=== PATIENT | male | born 1950 | race Caucasian/White ===

== ENCOUNTER 2017-09-18 11:50 | Day surgery (SDC) | payer OTHER, MEDICARE ==
[~2017-09-18 11:50] MED LIST: Metoclopramide 10 MG/2 ML SDV IV PRN; Sodium Chloride 0.9% 1,000 ML IV SCH; Sodium Chloride 0.9% 10 ML Syringe FLUSH PRN
[2017-09-18] MEDS ORDERED: Propofol 200 MG/20 ML SDV ONE (13:00)
[2017-09-18] MEDS ORDERED: Midazolam 1 MG/ML 5 ML SDV ONE (13:00)
[2017-09-18 16:56] VITALS: BP 115/71
--- NOTE | 2017-09-18 18:54 | OR ---
DATE OF OPERATION: 09/18/2017 PREOPERATIVE DIAGNOSIS: Screening colonoscopy. POSTOPERATIVE DIAGNOSIS: Normal colonoscopy. OPERATION: Screening colonoscopy. COMPLICATIONS: None. DRAINS: None. SPECIMENS: None. ESTIMATED BLOOD LOSS: 0. ANESTHESIA: General propofol anesthesia. INDICATION: Mr. Lewis is a 67-year-old gentleman who is here for his 10 yearly screening colonoscopy. He is currently asymptomatic. He is of average risk. The above-mentioned procedure was explained. The risks, benefits, and complications were explained, the patient understood and agreed. He is brought to the operating room. DESCRIPTION OF PROCEDURE: The patient was brought to the operating room, placed in the left lateral decubitus position on the operating room table, satisfactory general propofol anesthesia was administered. We began by performing a rectal examination which was within normal limits. I then subsequently placed my endoscope by finger introduction into the rectum and subsequently advanced to the level of the cecum. The cecum was identified by the appendiceal orifice, the ileocecal valve, and the cecal strap. Next, a careful evaluation of the mucosa was performed on withdrawal. This revealed no telangiectasias, no polyps or neoplastic growths; however, there were some scattered diverticula identified in the descending colon and [id number] sigmoid. Retroflexion was performed in the rectum which was within normal limits. The colon was then decompressed and the endoscope was withdrawn. There were no complications. The instrument count was correct. The patient tolerated the procedure well. ASHLEY /[id number]
== END 2017-09-18 14:48 | disposition home or self-care (01) ==
LOC: LB.SDS 11:50
PROVIDERS: ATTEND Surgery
DX: Z12.11 Encounter for screening for malignant neoplasm of colon (principal); K57.30 Diverticulosis of large intestine without perforation or abscess without bleeding; Z88.2 Allergy status to sulfonamides; Z88.8 Allergy status to other drugs, medicaments and biological substances
CPT/HCPCS: J2250; J2704; J7040; J7050

== ENCOUNTER 2018-06-04 18:37 | Emergency (ER) | payer MEDICARE, OTHER ==
[2018-06-04] MEDS ORDERED: Diphtheria/Tetanus Toxoids,Adult (Td) 0.5 ML SDV IM ONE (18:41)
--- NOTE | 2018-06-04 18:57 | EDM.PDOC ---
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 Pt cleaned it with peroxide and wrapped it with tape and her in the emergency room. not actively bleeding presently. Pt is not sure of his last tetanus shot. No other injuries. Onset: Today Onset Date: 06/04/18 Onset Time: 18:00 Location: Reports: Lower Extremity, Left Quality: Reports: Ache Severity: Mild Improves with: Reports: None Worsens with: Reports: None - Related Data Allergies Allergy/AdvReac Type Severity Reaction Status Date / Time simvastatin Allergy Muscle Verified 09/17/17 21:09 Aches Sulfa (Sulfonamide Allergy Swelling Verified 09/17/17 21:09 Antibiotics) Home Meds: Home Meds Ascorbate Calcium/Bioflavonoid [[place]olita-C 1,000 mg Tablet] 1 each PO DAILY [History] Loratadine [Claritin RediTabs] 10 mg PO DAILY 09/17/17 [History] Mirtazapine 7.5 mg PO DAILY 09/17/17 [History] Multivitamin [Multivitamins] 1 each PO DAILY 09/17/17 [History] Multivitamin/Iron/Folic Acid [Centrum Adults Tablet] 1 each PO DAILY 09/17/17 [ History] [place]-3/DHA/Epa/Fish Oil [Fish Oil 1,000 mg Softgel] 1,000 mg PO DAILY 09/17/17 [History] PARoxetine [Paxil] 10 mg PO DAILY 09/17/17 [History] Pravastatin [Pravachol] 10 mg PO BEDTIME 09/17/17 [History] Past Medical History HEENT History: Reports: Macular Degeneration Cardiovascular History: Reports: High Cholesterol Musculoskeletal History: Reports: Back Pain, Chronic Neurological History: Reports: Brain Injury, Concussion, Head Trauma Dermatologic History: Reports: Other (See Below) Other Dermatologic History: Bridgett ds - Infectious Disease History Infectious Disease History: Reports: Hepatitis B - Past Surgical History HEENT Surgical History: Reports: Tonsillectomy GI Surgical History: Reports: Appendectomy Neurological Surgical History: Reports: C-Spine Social & Family History - Caffeine Use Caffeine Use: Reports: Coffee ED ROS GENERAL - Review of Systems Review Of Systems: See Below Constitutional: Denies: Fever, Chills HEENT: Denies: Throat Pain Respiratory: Denies: Cough, Sputum Cardiovascular: Denies: Chest Pain, Lightheadedness GI/Abdominal: Denies: Nausea, Vomiting Skin: Reports: Wound. Denies: Bruising, Pruritis, Rash ED EXAM, GENERAL - Physical Exam Exam: See Below Exam Limited By: No Limitations General Appearance: Alert, WD/WN, No Apparent Distress Eye Exam: Bilateral Eye: EOMI, PERRL Ears: Normal External Exam, Normal Canal, Hearing Grossly Normal, Normal TMs Ear Exam: Bilateral Ear: Auricle Normal, Canal Normal, TM normal Nose: Normal Inspection, Normal Mucosa, No Blood Throat/Mouth: Normal Inspection, Normal Lips, Normal Teeth, Normal Gums, Normal Oropharynx, Normal Voice, No Airway Compromise Head: Atraumatic, Normocephalic Neck: Normal Inspection, Supple, Non-Tender, Full Range of Motion Respiratory/Chest: No Respiratory Distress, Lungs Clear, Normal Breath Sounds, No Accessory Muscle Use, Chest Non-Tender Cardiovascular: Normal Peripheral Pulses, Regular Rate, Rhythm, No Edema, No Gallop, No JVD, No Murmur, No Rub Neurological: Alert, Oriented Skin Exam: Warm, Intact, Other (left thumb: there is a 8mm superficial skin flap over the tip of the thumb, which is well approximated to the skin. There is no active bleeding or gapping of the wound.Non tender to touch. normal neurovascular exam.) Course - Vital Signs Text/Narrative:: The left thumb wound is hemostatic and it is very superficial. We did soak the wound in betadine for 5 mintues and cleaned the wound. Dermabond applied along the cut amrgin. Simple dressing done. Pt advised to keep the wound dry for 48 hrs. Simple daily dressings after that until the scab separates. Did receive tetanus today. followup in clinic if he develop swelling, redness or severe pain in the thumb or hand. - Orders/Labs/Meds Orders: Active Orders 24 hr Category Date Time Status Vaccines to be Administered [RC] PER UNIT ROUTINE Care 06/04/18 18:42 Ordered Diphtheria/Tetanus Tox,Adult [Tenivac] Med 06/04/18 18:41 Once 0.5 ml IM .ONCE ONE Departure - Departure Time of Disposition: 19:00 Disposition: Home, Self-Care 01 Clinical Impression: Laceration of thumb without complication - Discharge Information *PRESCRIPTION DRUG MONITORING PROGRAM REVIEWED*: Not Applicable *COPY OF PRESCRIPTION DRUG MONITORING REPORT IN PATIENT JASON: Not Applicable Additional Instructions: Pt advised to keep the wound dry for 48 hrs. Simple daily dressings after that until the scab separates. Did receive tetanus today. followup in clinic if he develop swelling, redness or severe pain in the thumb or hand. - Problem List & Annotations (1) Laceration of thumb without complication SNOMED Code(s): 711204971 Code(s): S61.019A - LACERATION W/O FOREIGN BODY OF THMB W/O DAMAGE TO NAIL, INIT Status: Acute - Problem List Review Problem List Initiated/Reviewed/Updated: Yes - My Orders Last 24 Hours: My Active Orders 06/04/18 18:41 Diphtheria/Tetanus Tox,Adult [Tenivac] 0.5 ml IM .ONCE ONE 06/04/18 18:42 Vaccines to be Administered [RC] PER UNIT ROUTINE - Assessment/Plan Last 24 Hours: My Active Orders 06/04/18 18:41 Diphtheria/Tetanus Tox,Adult [Tenivac] 0.5 ml IM .ONCE ONE 06/04/18 18:42 Vaccines to be Administered [RC] PER UNIT ROUTINE Assessment:: Superficial left thumb laceration Plan: Pt advised to keep the wound dry for 48 hrs. Simple daily dressings after that until the scab separates. Did receive tetanus today. followup in clinic if he develop swelling, redness or severe pain in the thumb or hand.
[2018-06-04 19:24] VITALS: BP 131/78
== END 2018-06-04 19:04 | disposition home or self-care (01) ==
LOC: LB.ED 18:37
DX: S61.012A Laceration without foreign body of left thumb without damage to nail, initial encounter (principal); E78.00 Pure hypercholesterolemia, unspecified; Z79.899 Other long term (current) drug therapy; Z23 Encounter for immunization; Z88.8 Allergy status to other drugs, medicaments and biological substances
CPT/HCPCS: 12001; 90471; 90714; 99283-25

== ENCOUNTER 2020-04-23 10:48 | Observation (INO) | payer MEDICARE ==
--- NOTE | 2020-04-23 12:03 | EDM.PDOC ---
ED HPI GENERAL MEDICAL PROBLEM - General Chief Complaint: General Stated Complaint: NUMBNESS TO LEFT LEG DIZZINESS Time Seen by Provider: 04/23/20 11:40 Source of Information: Reports: Patient, RN History Limitations: Reports: No Limitations - History of Present Illness INITIAL COMMENTS - FREE TEXT/NARRATIVE: Patient was working outside and felt his left leg go numb, he states he fell, denies head or any trauma. On the way to the ED he had "a little bit " of left wrist numbness that resolved quickly. He had left wrist numbness Denies any pain at this time. NIH stroke negative. CMS +. Patient has a history of bradycardia with an average HR of 44 per patiient. He has had [place] cardiololgy work up. Onset: Today Onset Date: 04/23/20 Onset Time: 09:30 Location: Reports: Lower Extremity, Left Severity: Moderate Improves with: Reports: None Worsens with: Reports: None Associated Symptoms: Reports: No Other Symptoms - Related Data Allergies Allergy/AdvReac Type Severity Reaction Status Date / Time simvastatin Allergy Muscle Verified 04/23/20 11:16 Aches Sulfa (Sulfonamide Allergy Swelling Verified 04/23/20 11:16 Antibiotics) Home Meds: Home Meds Loratadine [Claritin RediTabs] 10 mg PO DAILY 09/17/17 [History] Mirtazapine 7.5 mg PO DAILY 09/17/17 [History] Multivitamin [Multivitamins] 1 each PO DAILY 09/17/17 [History] Multivitamin/Iron/Folic Acid [Centrum Adults Tablet] 1 each PO DAILY 09/17/17 [History] [place]-3/DHA/Epa/Fish Oil [Fish Oil 1,000 mg Softgel] 1,000 mg PO DAILY 09/17/17 [History] PARoxetine [Paxil] 10 mg PO DAILY 09/17/17 [History] Pravastatin [Pravachol] 10 mg PO BEDTIME 09/17/17 [History] Past Medical History HEENT History: Reports: Macular Degeneration Cardiovascular History: Reports: High Cholesterol Musculoskeletal History: Reports: Back Pain, Chronic Neurological History: Reports: Brain Injury, Concussion, Head Trauma Dermatologic History: Reports: Other (See Below) Other Dermatologic History: Bridgett ds - Infectious Disease History Infectious Disease History: Reports: Hepatitis B - Past Surgical History HEENT Surgical History: Reports: Tonsillectomy GI Surgical History: Reports: Appendectomy Neurological Surgical History: Reports: C-Spine Social & Family History - Caffeine Use Caffeine Use: Reports: Coffee ED ROS GENERAL - Review of Systems Review Of Systems: See Below Constitutional: Reports: Weakness (left leg) HEENT: Reports: No Symptoms Respiratory: Reports: No Symptoms Cardiovascular: Reports: No Symptoms Endocrine: Reports: No Symptoms GI/Abdominal: Reports: No Symptoms : Reports: No Symptoms Musculoskeletal: Reports: Other (left leg weakness) Skin: Reports: No Symptoms Neurological: Reports: No Symptoms Psychiatric: Reports: No Symptoms Hematologic/Lymphatic: Reports: No Symptoms ED EXAM, GENERAL - Physical Exam Exam: See Below Exam Limited By: No Limitations General Appearance: Alert, No Apparent Distress Eye Exam: Bilateral Eye: Normal Inspection Ears: Normal External Exam, Normal Canal, Normal TMs Ear Exam: Bilateral Ear: Auricle Normal, Canal Normal, TM normal Nose: Normal Inspection Throat/Mouth: Normal Inspection, Normal Lips Head: Atraumatic Neck: Normal Inspection, Non-Tender, Full Range of Motion Respiratory/Chest: No Respiratory Distress, Lungs Clear, Normal Breath Sounds Cardiovascular: Normal Peripheral Pulses, Regular Rate, Rhythm. No: No Edema, No JVD, No Murmur Peripheral Pulses: 3+: Carotid (L), Carotid (R), Radial (L), Radial (R), Femoral (L), Posterior Tibial (L), Posterior Tibial (R), Dorsalis Pedis (L), Dorsalis Pedis (R) GI/Abdominal: Normal Bowel Sounds, Soft, Non-Tender Back Exam: Normal Inspection, Full Range of Motion. No: CVA Tenderness (R), CVA Tenderness (L), Paraspinal Tenderness, Vertebral Tenderness Extremities: Normal Inspection, Normal Range of Motion, Non-Tender, No Pedal Edema, Normal Capillary Refill. No: Pedal Edema Neurological: Alert, Oriented, CN II-XII Intact, Normal Cognition, Normal Reflexes, No Motor/Sensory Deficits Psychiatric: Normal Affect, Normal Mood Skin Exam: Warm, Dry, Intact Lymphatic: No Adenopathy Course - Vital Signs Last Recorded V/S: Last Vital Signs Temp 97.9 F 04/23/20 15:51 Pulse 61 04/23/20 15:51 Resp 16 04/23/20 15:51 BP 131/77 04/23/20 15:51 Pulse Ox 96 04/23/20 15:51 - Orders/Labs/Meds Orders: Active Orders 24 hr Category Date Time Status Admission Status [Patient Status] [ADT] Routine ADT 04/23/20 13:56 Active Assess Neurological Status [RC] CONTINUOUS Care 04/23/20 11:54 Active Blood Glucose Check, Bedside [RC] STAT Care 04/23/20 11:54 Active Cardiac Monitoring [RC] CONTINUOUS Care 04/23/20 11:54 Active Communication Order [RC] STAT Care 04/23/20 11:54 Active EKG Documentation Completion [RC] ASDIRECTED Care 04/23/20 11:45 Active EKG Documentation Completion [RC] ASDIRECTED Care 04/23/20 11:55 Active Height and Weight [RC] UPON Care 04/23/20 11:54 Active NIH Stroke Scale [RC] Q15M Care 04/23/20 11:54 Active NIH Stroke Scale [RC] STAT Care 04/23/20 11:54 Active Vital Signs [RC] Q15M Care 04/23/20 11:54 Active Resuscitation Status Stat Resus Stat 04/23/20 11:51 Ordered Labs: Laboratory Tests 04/23/20 04/23/20 04/23/20 Range/Units 11:15 11:45 11:45 WBC 8.8 (4.0-11.0) K/uL RBC 5.11 (4.50-6.50) M/uL Hgb 15.5 (13.0-18.0) g/dL Hct 46.5 (40.0-54.0) % MCV 91 (76-96) fL MCH 30.3 (27.0-32.0) pg MCHC 33.3 (31.0-35.0) g/dL RDW 12.8 (11.0-16.0) % Plt Count 198 (150-400) K/uL MPV 9.7 (6.0-10.0) fL Neut % (Auto) 42.8 L (45.0-70.0) % Lymph % (Auto) 44.1 H (20.0-40.0) % [place] % (Auto) 11.7 H (3.0-10.0) % Eos % (Auto) 1.1 (1.0-5.0) % Baso % (Auto) 0.3 (0.0-0.5) % Neut # (Auto) 3.77 (2.00-7.50) K/uL Lymph # (Auto) 3.89 (1.50-4.00) K/uL [place] # (Auto) 1.03 H (0.20-0.80) K/uL Eos # (Auto) 0.10 (0.04-0.40) K/uL Baso # (Auto) 0.03 (0.02-0.10) K/uL PT (9.0-11.5) sec INR (1.0-3.5) APTT (24.4-33.2) SECONDS Sodium 139 (136-145) mmol/L Potassium 4.3 (3.5-5.1) mmol/L Chloride 102 (98-107) mmol/L Carbon Dioxide 31.2 (21.0-32.0) mmol/L Anion Gap 10.1 (5.0-15.0) mmol/L BUN 19 (8-26) mg/dL Creatinine 1.60 H (0.70-1.30) mg/dL Est Cr Clr Drug Dosing 40.97 mL/min Estimated GFR (MDRD) 43 L (>60) MLS/MIN BUN/Creatinine Ratio 11.9 (6-25) Glucose 90 (74-100) mg/dL POC Glucose 83 (74-110) mg/dL Calcium 9.2 (8.5-10.1) mg/dL Total Bilirubin 1.1 H (0.0-1.0) mg/dL AST 21 (15-37) U/L ALT 33 (12-78) U/L Alkaline Phosphatase 91 (46-116) U/L Troponin I (0.000-0.060) ng/mL Total Protein 8.1 (6.4-8.2) g/dL Albumin 4.2 (3.4-5.0) g/dL Globulin 3.9 (2.2-4.2) g/dL Albumin/Globulin Ratio 1.1 (0.8-2.0) 04/23/20 04/23/20 Range/Units 11:54 11:54 WBC (4.0-11.0) K/uL RBC (4.50-6.50) M/uL Hgb (13.0-18.0) g/dL Hct (40.0-54.0) % MCV (76-96) fL MCH (27.0-32.0) pg MCHC (31.0-35.0) g/dL RDW (11.0-16.0) % Plt Count (150-400) K/uL MPV (6.0-10.0) fL Neut % (Auto) (45.0-70.0) % Lymph % (Auto) (20.0-40.0) % [place] % (Auto) (3.0-10.0) % Eos % (Auto) (1.0-5.0) % Baso % (Auto) (0.0-0.5) % Neut # (Auto) (2.00-7.50) K/uL Lymph # (Auto) (1.50-4.00) K/uL [place] # (Auto) (0.20-0.80) K/uL Eos # (Auto) (0.04-0.40) K/uL Baso # (Auto) (0.02-0.10) K/uL PT 9.6 (9.0-11.5) sec INR 0.9 L (1.0-3.5) APTT 23.0 L (24.4-33.2) SECONDS Sodium (136-145) mmol/L Potassium (3.5-5.1) mmol/L Chloride (98-107) mmol/L Carbon Dioxide (21.0-32.0) mmol/L Anion Gap (5.0-15.0) mmol/L BUN (8-26) mg/dL Creatinine (0.70-1.30) mg/dL Est Cr Clr Drug Dosing mL/min Estimated GFR (MDRD) (>60) MLS/MIN BUN/Creatinine Ratio (6-25) Glucose (74-100) mg/dL POC Glucose (74-110) mg/dL Calcium (8.5-10.1) mg/dL Total Bilirubin (0.0-1.0) mg/dL AST (15-37) U/L ALT (12-78) U/L Alkaline Phosphatase (46-116) U/L Troponin I < 0.017 (0.000-0.060) ng/mL Total Protein (6.4-8.2) g/dL Albumin (3.4-5.0) g/dL Globulin (2.2-4.2) g/dL Albumin/Globulin Ratio (0.8-2.0) - Re-Assessments/Exams Free Text/Narrative Re-Assessment/Exam: 04/23/20 12:17 Neuro exam unremarkable. Patient resting comfortably, aware of wait fo results. Departure - Departure Time of Disposition: 17:00 Disposition: DC/Tfer to Acute Hospital 02 Clinical Impression: Bradycardia - Discharge Information *PRESCRIPTION DRUG MONITORING PROGRAM REVIEWED*: Not Applicable *COPY OF PRESCRIPTION DRUG MONITORING REPORT IN PATIENT JASON: Not Applicable - My Orders Last 24 Hours: My Active Orders 04/23/20 11:45 EKG Documentation Completion [RC] ASDIRECTED 04/23/20 11:51 Resuscitation Status Stat 04/23/20 11:54 Assess Neurological Status [RC] CONTINUOUS Blood Glucose Check, Bedside [RC] STAT Cardiac Monitoring [RC] CONTINUOUS Communication Order [RC] STAT Height and Weight [RC] UPON NIH Stroke Scale [RC] Q15M NIH Stroke Scale [RC] STAT Vital Signs [RC] Q15M 04/23/20 11:55 EKG Documentation Completion [RC] ASDIRECTED 04/23/20 13:56 Admission Status [Patient Status] [ADT] Routine - Assessment/Plan Last 24 Hours: My Active Orders 04/23/20 11:45 EKG Documentation Completion [RC] ASDIRECTED 04/23/20 11:51 Resuscitation Status Stat 04/23/20 11:54 Assess Neurological Status [RC] CONTINUOUS Blood Glucose Check, Bedside [RC] STAT Cardiac Monitoring [RC] CONTINUOUS Communication Order [RC] STAT Height and Weight [RC] UPON NIH Stroke Scale [RC] Q15M NIH Stroke Scale [RC] STAT Vital Signs [RC] Q15M 04/23/20 11:55 EKG Documentation Completion [RC] ASDIRECTED 04/23/20 13:56 Admission Status [Patient Status] [ADT] Routine Assessment:: Left leg numbness has somewhat resolved. No CP/SOB, pain or weakness. Neuro exam is unremarkable. Lung sounds clear and equal in all smith. Plan: Spoke with Dr. Pham, she agrees that this patient should be transfered for extended work up for TIA/Stroke and the bradycardia. Will transfer patient to [facility] for futher testing. Differiential diagnosis may include: TIA or CVA. Patient had normal neuro exams without any deficiencies. Head CT was negative for acute bleed. Symptoms resolved in ED without interventions.
--- NOTE | 2020-04-23 14:35 | CT ---
DATE OF SERVICE: 04/23/2020 CLINICAL DATA: Left side numbness Unenhanced brain CT: Multislice acquisition through the brain without IV contrast was performed. No priors. No masses or mass effect. No intracranial hemorrhage. No evidence of acute or subacute infarct. No osseous abnormalities. Impression: No acute intracranial abnormalities. MTDD
--- NOTE | 2020-04-23 15:43 | PCM.PN ---
<Esperanza Pham - Last Filed: 04/23/20 15:46> - Patient Data Vitals - Most Recent: Last Vital Signs Temp 36.7 C 04/23/20 11:20 Pulse 55 L 04/23/20 15:00 Resp 16 04/23/20 15:00 BP 128/87 04/23/20 14:55 Pulse Ox 97 04/23/20 14:55 Weight - Most Recent: 168 lb I&O - Last 24 Hours: Intake & Output 04/23/20 04/23/20 04/23/20 06:59 14:59 22:59 Intake Total 360 Balance 360 Lab Results Last 24 Hours: Laboratory Results - last 24 hr 04/23/20 04/23/20 04/23/20 Range/Units 11:15 11:45 11:45 WBC 8.8 (4.0-11.0) K/uL RBC 5.11 (4.50-6.50) M/uL Hgb 15.5 (13.0-18.0) g/dL Hct 46.5 (40.0-54.0) % MCV 91 (76-96) fL MCH 30.3 (27.0-32.0) pg MCHC 33.3 (31.0-35.0) g/dL RDW 12.8 (11.0-16.0) % Plt Count 198 (150-400) K/uL MPV 9.7 (6.0-10.0) fL Neut % (Auto) 42.8 L (45.0-70.0) % Lymph % (Auto) 44.1 H (20.0-40.0) % [place] % (Auto) 11.7 H (3.0-10.0) % Eos % (Auto) 1.1 (1.0-5.0) % Baso % (Auto) 0.3 (0.0-0.5) % Neut # (Auto) 3.77 (2.00-7.50) K/uL Lymph # (Auto) 3.89 (1.50-4.00) K/uL [place] # (Auto) 1.03 H (0.20-0.80) K/uL Eos # (Auto) 0.10 (0.04-0.40) K/uL Baso # (Auto) 0.03 (0.02-0.10) K/uL PT (9.0-11.5) sec INR (1.0-3.5) APTT (24.4-33.2) SECONDS Sodium 139 (136-145) mmol/L Potassium 4.3 (3.5-5.1) mmol/L Chloride 102 (98-107) mmol/L Carbon Dioxide 31.2 (21.0-32.0) mmol/L Anion Gap 10.1 (5.0-15.0) mmol/L BUN 19 (8-26) mg/dL Creatinine 1.60 H (0.70-1.30) mg/dL Est Cr Clr Drug Dosing 40.97 mL/min Estimated GFR (MDRD) 43 L (>60) MLS/MIN BUN/Creatinine Ratio 11.9 (6-25) Glucose 90 (74-100) mg/dL POC Glucose 83 (74-110) mg/dL Calcium 9.2 (8.5-10.1) mg/dL Total Bilirubin 1.1 H (0.0-1.0) mg/dL AST 21 (15-37) U/L ALT 33 (12-78) U/L Alkaline Phosphatase 91 (46-116) U/L Troponin I (0.000-0.060) ng/mL Total Protein 8.1 (6.4-8.2) g/dL Albumin 4.2 (3.4-5.0) g/dL Globulin 3.9 (2.2-4.2) g/dL Albumin/Globulin Ratio 1.1 (0.8-2.0) 04/23/20 04/23/20 Range/Units 11:54 11:54 WBC (4.0-11.0) K/uL RBC (4.50-6.50) M/uL Hgb (13.0-18.0) g/dL Hct (40.0-54.0) % MCV (76-96) fL MCH (27.0-32.0) pg MCHC (31.0-35.0) g/dL RDW (11.0-16.0) % Plt Count (150-400) K/uL MPV (6.0-10.0) fL Neut % (Auto) (45.0-70.0) % Lymph % (Auto) (20.0-40.0) % [place] % (Auto) (3.0-10.0) % Eos % (Auto) (1.0-5.0) % Baso % (Auto) (0.0-0.5) % Neut # (Auto) (2.00-7.50) K/uL Lymph # (Auto) (1.50-4.00) K/uL [place] # (Auto) (0.20-0.80) K/uL Eos # (Auto) (0.04-0.40) K/uL Baso # (Auto) (0.02-0.10) K/uL PT 9.6 (9.0-11.5) sec INR 0.9 L (1.0-3.5) APTT 23.0 L (24.4-33.2) SECONDS Sodium (136-145) mmol/L Potassium (3.5-5.1) mmol/L Chloride (98-107) mmol/L Carbon Dioxide (21.0-32.0) mmol/L Anion Gap (5.0-15.0) mmol/L BUN (8-26) mg/dL Creatinine (0.70-1.30) mg/dL Est Cr Clr Drug Dosing mL/min Estimated GFR (MDRD) (>60) MLS/MIN BUN/Creatinine Ratio (6-25) Glucose (74-100) mg/dL POC Glucose (74-110) mg/dL Calcium (8.5-10.1) mg/dL Total Bilirubin (0.0-1.0) mg/dL AST (15-37) U/L ALT (12-78) U/L Alkaline Phosphatase (46-116) U/L Troponin I < 0.017 (0.000-0.060) ng/mL Total Protein (6.4-8.2) g/dL Albumin (3.4-5.0) g/dL Globulin (2.2-4.2) g/dL Albumin/Globulin Ratio (0.8-2.0) Sepsis Event Note - Evaluation Sepsis Screening Result: No Definite Risk - Focused Exam Vital Signs: Vital Signs Temp Pulse Resp BP Pulse Ox 04/23/20 15:00 55 L 16 04/23/20 14:55 55 L 16 128/87 97 04/23/20 12:45 51 L 18 142/83 H 94 L 04/23/20 12:30 57 L 16 138/80 94 L 04/23/20 12:09 51 L 16 133/86 94 L 04/23/20 11:54 48 L 18 139/83 94 L 04/23/20 11:20 36.7 C 52 L 18 144/87 H 97 Date Exam was Performed: 04/23/20 Time Exam was Performed: 15:46 - Assessment Assessment:: 69 yo with HPL presented to ED with leg weakness and numbness which subsequently resolved. Pt has been evaluated at [facility] for PPM but was told he did not need one. Reportedly gets lightheaded and dizzy regularly. HR found to be 30-40. Discussed with provider that patient should be evaluated for the followin. Syncope with bradycardia--need to r/o high grade arrhythmia given symptoms. Pt is currently on no nayana blocking agents. 2. Numbness and weakness in limb--deserves a work up for TIA/Stroke. <Floridalma Mares - Last Filed: 04/24/20 02:24> - General Info Date of Service: 04/23/20 - Review of Systems General: Reports: No Symptoms HEENT: Reports: No Symptoms Pulmonary: Reports: No Symptoms Cardiovascular: Reports: No Symptoms (patient is bradycardic which he states is normal for him HR 40s, denies any CP) Gastrointestinal: Reports: No Symptoms Genitourinary: Reports: No Symptoms Musculoskeletal: Reports: No Symptoms (left leg numbness resolves prior to transport, ambulates without issues) Skin: Reports: No Symptoms Neurological: Reports: No Symptoms. Denies: Dizziness, Numbness Psychiatric: Reports: No Symptoms - Patient Data Vitals - Most Recent: Last Vital Signs Temp 97.9 F 04/23/20 15:51 Pulse 61 04/23/20 15:51 Resp 16 04/23/20 15:51 BP 131/77 04/23/20 15:51 Pulse Ox 96 04/23/20 15:51 I&O - Last 24 Hours: Intake & Output 04/23/20 04/23/20 04/24/20 14:59 22:59 06:59 Intake Total 360 Balance 360 Lab Results Last 24 Hours: Laboratory Results - last 24 hr 08/07/0304/23/20 04/23/20 Range/Units 11:15 11:45 11:45 WBC 8.8 (4.0-11.0) K/uL RBC 5.11 (4.50-6.50) M/uL Hgb 15.5 (13.0-18.0) g/dL Hct 46.5 (40.0-54.0) % MCV 91 (76-96) fL MCH 30.3 (27.0-32.0) pg MCHC 33.3 (31.0-35.0) g/dL RDW 12.8 (11.0-16.0) % Plt Count 198 (150-400) K/uL MPV 9.7 (6.0-10.0) fL Neut % (Auto) 42.8 L (45.0-70.0) % Lymph % (Auto) 44.1 H (20.0-40.0) % [place] % (Auto) 11.7 H (3.0-10.0) % Eos % (Auto) 1.1 (1.0-5.0) % Baso % (Auto) 0.3 (0.0-0.5) % Neut # (Auto) 3.77 (2.00-7.50) K/uL Lymph # (Auto) 3.89 (1.50-4.00) K/uL [place] # (Auto) 1.03 H (0.20-0.80) K/uL Eos # (Auto) 0.10 (0.04-0.40) K/uL Baso # (Auto) 0.03 (0.02-0.10) K/uL PT (9.0-11.5) sec INR (1.0-3.5) APTT (24.4-33.2) SECONDS Sodium 139 (136-145) mmol/L Potassium 4.3 (3.5-5.1) mmol/L Chloride 102 (98-107) mmol/L Carbon Dioxide 31.2 (21.0-32.0) mmol/L Anion Gap 10.1 (5.0-15.0) mmol/L BUN 19 (8-26) mg/dL Creatinine 1.60 H (0.70-1.30) mg/dL Est Cr Clr Drug Dosing 40.97 mL/min Estimated GFR (MDRD) 43 L (>60) MLS/MIN BUN/Creatinine Ratio 11.9 (6-25) Glucose 90 (74-100) mg/dL POC Glucose 83 (74-110) mg/dL Calcium 9.2 (8.5-10.1) mg/dL Total Bilirubin 1.1 H (0.0-1.0) mg/dL AST 21 (15-37) U/L ALT 33 (12-78) U/L Alkaline Phosphatase 91 (46-116) U/L Troponin I (0.000-0.060) ng/mL Total Protein 8.1 (6.4-8.2) g/dL Albumin 4.2 (3.4-5.0) g/dL Globulin 3.9 (2.2-4.2) g/dL Albumin/Globulin Ratio 1.1 (0.8-2.0) COVID-19 ([facility]) 04/23/20 04/23/20 04/23/20 Range/Units 11:54 11:54 16:00 WBC (4.0-11.0) K/uL RBC (4.50-6.50) M/uL Hgb (13.0-18.0) g/dL Hct (40.0-54.0) % MCV (76-96) fL MCH (27.0-32.0) pg MCHC (31.0-35.0) g/dL RDW (11.0-16.0) % Plt Count (150-400) K/uL MPV (6.0-10.0) fL Neut % (Auto) (45.0-70.0) % Lymph % (Auto) (20.0-40.0) % [place] % (Auto) (3.0-10.0) % Eos % (Auto) (1.0-5.0) % Baso % (Auto) (0.0-0.5) % Neut # (Auto) (2.00-7.50) K/uL Lymph # (Auto) (1.50-4.00) K/uL [place] # (Auto) (0.20-0.80) K/uL Eos # (Auto) (0.04-0.40) K/uL Baso # (Auto) (0.02-0.10) K/uL PT 9.6 (9.0-11.5) sec INR 0.9 L (1.0-3.5) APTT 23.0 L (24.4-33.2) SECONDS Sodium (136-145) mmol/L Potassium (3.5-5.1) mmol/L Chloride (98-107) mmol/L Carbon Dioxide (21.0-32.0) mmol/L Anion Gap (5.0-15.0) mmol/L BUN (8-26) mg/dL Creatinine (0.70-1.30) mg/dL Est Cr Clr Drug Dosing mL/min Estimated GFR (MDRD) (>60) MLS/MIN BUN/Creatinine Ratio (6-25) Glucose (74-100) mg/dL POC Glucose (74-110) mg/dL Calcium (8.5-10.1) mg/dL Total Bilirubin (0.0-1.0) mg/dL AST (15-37) U/L ALT (12-78) U/L Alkaline Phosphatase (46-116) U/L Troponin I < 0.017 < 0.017 (0.000-0.060) ng/mL Total Protein (6.4-8.2) g/dL Albumin (3.4-5.0) g/dL Globulin (2.2-4.2) g/dL Albumin/Globulin Ratio (0.8-2.0) COVID-19 ([facility]) 04/23/20 Range/Units 16:00 WBC (4.0-11.0) K/uL RBC (4.50-6.50) M/uL Hgb (13.0-18.0) g/dL Hct (40.0-54.0) % MCV (76-96) fL MCH (27.0-32.0) pg MCHC (31.0-35.0) g/dL RDW (11.0-16.0) % Plt Count (150-400) K/uL MPV (6.0-10.0) fL Neut % (Auto) (45.0-70.0) % Lymph % (Auto) (20.0-40.0) % [place] % (Auto) (3.0-10.0) % Eos % (Auto) (1.0-5.0) % Baso % (Auto) (0.0-0.5) % Neut # (Auto) (2.00-7.50) K/uL Lymph # (Auto) (1.50-4.00) K/uL [place] # (Auto) (0.20-0.80) K/uL Eos # (Auto) (0.04-0.40) K/uL Baso # (Auto) (0.02-0.10) K/uL PT (9.0-11.5) sec INR (1.0-3.5) APTT (24.4-33.2) SECONDS Sodium (136-145) mmol/L Potassium (3.5-5.1) mmol/L Chloride (98-107) mmol/L Carbon Dioxide (21.0-32.0) mmol/L Anion Gap (5.0-15.0) mmol/L BUN (8-26) mg/dL Creatinine (0.70-1.30) mg/dL Est Cr Clr Drug Dosing mL/min Estimated GFR (MDRD) (>60) MLS/MIN BUN/Creatinine Ratio (6-25) Glucose (74-100) mg/dL POC Glucose (74-110) mg/dL Calcium (8.5-10.1) mg/dL Total Bilirubin (0.0-1.0) mg/dL AST (15-37) U/L ALT (12-78) U/L Alkaline Phosphatase (46-116) U/L Troponin I (0.000-0.060) ng/mL Total Protein (6.4-8.2) g/dL Albumin (3.4-5.0) g/dL Globulin (2.2-4.2) g/dL Albumin/Globulin Ratio (0.8-2.0) COVID-19 ([facility]) Negative Sepsis Event Note - Focused Exam Vital Signs: Vital Signs Temp Pulse Resp BP Pulse Ox 04/23/20 15:51 97.9 F 61 16 131/77 96 04/23/20 15:00 55 L 16 04/23/20 14:55 55 L 16 128/87 97 Date Exam was Performed: 04/24/20 Time Exam was Performed: 02:24 - Problem List Review Problem List Initiated/Reviewed/Updated: Yes - My Orders Last 24 Hours: My Active Orders 04/23/20 11:45 EKG Documentation Completion [RC] ASDIRECTED 04/23/20 11:51 Resuscitation Status Stat 04/23/20 11:54 Assess Neurological Status [RC] CONTINUOUS Blood Glucose Check, Bedside [RC] STAT Cardiac Monitoring [RC] CONTINUOUS Communication Order [RC] STAT Height and Weight [RC] UPON NIH Stroke Scale [RC] Q15M NIH Stroke Scale [RC] STAT Vital Signs [RC] Q15M 04/23/20 11:55 EKG Documentation Completion [RC] ASDIRECTED 04/23/20 13:56 Admission Status [Patient Status] [ADT] Routine 04/23/20 14:15 CULTURE MRSA SURVEY [RM] Routine 04/23/20 15:41 Vital Signs [RC] Q2H - Plan Plan:: Patient to be transfered to [facility] for further evaluation of bradycardia and stroke work up.
[2020-04-23 15:51] VITALS: BP 131/77; PULSE 61
== END 2020-04-23 16:50 ==
LOC: LB.ED 10:48 → LB.MS 14:08
PROVIDERS: ADMIT Nurse Practitioner; ATTEND Nurse Practitioner
DX: R55 Syncope and collapse (principal); R00.1 Bradycardia, unspecified; R20.0 Anesthesia of skin; R53.1 Weakness; E78.00 Pure hypercholesterolemia, unspecified; Z88.2 Allergy status to sulfonamides; Z88.8 Allergy status to other drugs, medicaments and biological substances; Z20.828 Contact with and (suspected) exposure to other viral communicable diseases; Z79.899 Other long term (current) drug therapy
CPT/HCPCS: 36415; 70450; 80053; 82962; 84484; 85025; 85610; 85730; 93005; 99285-25; G0378; U0002

== ENCOUNTER 2021-11-17 09:30 | Emergency (ER) | payer OTHER ==
[2021-11-17] MEDS ORDERED: traMADol 50 MG Tab ONE (10:25)
[2021-11-17 11:59] VITALS: BP 126/76; PULSE 88
== END 2021-11-17 10:30 | disposition home or self-care (01) ==
LOC: LB.ED 09:30
DX: M10.9 Gout, unspecified (principal); E78.00 Pure hypercholesterolemia, unspecified; Z88.2 Allergy status to sulfonamides; Z88.8 Allergy status to other drugs, medicaments and biological substances; Z79.899 Other long term (current) drug therapy
CPT/HCPCS: 99283; A9270; 99282